=== PATIENT | female | born 1960 | race Hispanic/Latino ===

== ENCOUNTER → 2024-05-17 | Outpatient (CLI) | payer OTHER ==
--- NOTE | 2024-05-17 13:15 | NUR ---
MBSS COMPLETED (OUTPATIENT). Aspiration before the swallow with mixed textures. Recommend regular solids (no mixed textures), thin liquids and pills whole with pudding or crushed as tolerated. Compensatory strategies: 1. sit upright during oral intake 2. extra dry swallows WIRE STRAIGHTENER reviewed results and recommendations with patient and . WIRE STRAIGHTENER educated patient on risks and consequences of aspiration. Speech therapy recommended as outpatient to address mild to moderate pharyngeal dysphagia. All questions answered. Addendum: 05/17/[address]ENIS GUILLEN Amended: Links added.
--- NOTE | 2024-05-17 16:09 | HMCIMG ---
MODIFIED BARIUM SWALLOW W CINE REASON: Feeding difficulties, unspecified; Dysphagia, oropharyngeal phase FINDINGS: Fluoroscopic assistance was provided to the speech pathologist while performing examination. For findings and dietary recommendations, refer to speech pathologist's report. FLUORO TIME: Fluoroscopy time 2 minutes IMPRESSION: Modified barium swallow as described.
== END | disposition home or self-care (01) ==
LOC: RAH 13:01
PROVIDERS: ATTEND Internal Medicine Gastroenterology
DX: R63.30 Feeding difficulties, unspecified (principal); R13.12 Dysphagia, oropharyngeal phase
CPT/HCPCS: 74230; 92611